=== PATIENT | male | born 1980 | race Caucasian/White ===

== ENCOUNTER 2017-05-08 17:15 | Emergency (ER) | payer SELFPAY ==
[~2017-05-08] VITALS: Wt 102.1 kg
[~2017-05-08 17:15] MED LIST: ULTRAM50 MG PO; Zofran4 MG PO
[2017-05-08] MEDS ORDERED: SERTRALINE HYD100 MG PO (17:34)
[2017-05-08] MEDS ORDERED: D3-5050000 IU PO (17:35)
[2017-05-08] MEDS ORDERED: NEXIUM20 M1 PO (17:35)
[2017-05-08] MEDS ORDERED: ZANTAC 150150 MG PO (17:35)
[2017-05-08 18:15] LABS: BASO % 0.2 % (0.0-1.0); HEMOGLOBIN 15.8 g/dl (14.0-18.0); IG # 0.1 10*3/uL (0.0-0.1); LYMPH # 1.6 10*3/uL (1.3-4.4); LYMPH % 9.5 % (27.0-41.0); MEAN CELL VOLUME 81.3 fl (80.0-94.0); MEAN CORPUSCULAR HGB 29.2 pg (27.0-31.0); MEAN CORPUSCULAR HGB CONC 35.9 g/dl (33.0-37.0); MEAN PLATELET VOLUME 10.8 fl (9.6-12.3); MONO # 0.5 10*3/uL (0.1-1.0); MONO % 3.2 % (3.0-9.0); NEUT # 14.5 10*3/uL (2.3-7.9); NEUT % 86.4 % (47.0-73.0); PLATELET COUNT AUTOMATED 290 10*3/uL (130-400); RED BLOOD COUNT 5.41 10*6/uL (4.50-5.90); RED CELL DISTRI WIDTH 12.6 % (0-14.5); WHITE BLOOD COUNT 16.8 10*3/uL (4.8-10.8)
[2017-05-08 18:16] LABS: BILIRUBIN NEGATIVE (NEGATIVE); BLOOD NEGATIVE (NEGATIVE); CLARITY CLEAR (CLEAR); COLOR YELLOW (YELLOW); GLUCOSE NEGATIVE (NEGATIVE); KETONE 2+ (NEGATIVE); LEUKO ESTERASE NEGATIVE (NEGATIVE); NITRITE NEGATIVE (NEGATIVE); PH >= 9.0 (5.0-9.0); PROTEIN 1+ (NEGATIVE); UROBILINOGEN 0.2 E.U./dl (0.2-1.0)
[2017-05-08 18:27] LABS: BACTERIA 2+; EPITHELIAL CELLS 0-2; URINE REFLEX COMMENT YES (NO); WBC 0-2 wbc/hpf (0-5)
[2017-05-08 18:31] LABS: ALBUMIN 4.4 gm/dl (3.1-4.5); ALKALINE PHOSPHATASE 94 U/L (45-117); BILIRUBIN, TOTAL 0.7 mg/dl (0.2-1.0); BUN 13 mg/dl (7-24); CARBON DIOXIDE 19 mmol/L (21-32); CHLORIDE 106 mmol/L (98-107); EST GLOM FILT AFRICAN AMERICAN > 60 ml/min; GLUCOSE 124 mg/dL (65-99); POTASSIUM 3.4 mmol/L (3.5-5.1); SGOT/AST 22 IU/L (3-35); SGPT/ALT 44 U/L (12-78); SODIUM 142 mmol/L (136-145); TOTAL PROTEIN 8.2 gm/dL (6.4-8.2)
[2017-05-08 18:34] LABS: TROPONIN I < 0.015 ng/ml (<0.045)
[2017-05-08 20:10] LABS: LA>2 REFLEX 2 HR DRAW NOW
[2017-05-09] MEDS ORDERED: MELATONIN3 MG PO (23:09)
[2017-05-09] MEDS ORDERED: UNISOM50 MG PO (23:09)
== END 2017-05-08 19:35 | disposition home or self-care (01) ==
LOC: ED 17:15
PROVIDERS: Registered Nurse
DX: E87.2 Acidosis (principal); R10.9 Unspecified abdominal pain; K21.0 Gastro-esophageal reflux disease with esophagitis; D72.829 Elevated white blood cell count, unspecified; F12.10 Cannabis abuse, uncomplicated; F17.200 Nicotine dependence, unspecified, uncomplicated; Z88.8 Allergy status to other drugs, medicaments and biological substances

== ENCOUNTER 2017-05-09 20:14 | Inpatient (IN) | payer SELFPAY ==
[~2017-05-09] VITALS: Ht 172.7 cm; Wt 104.1 kg
[~2017-05-09 20:14] MED LIST changes: +D3-5050000 IU PO; +NEXIUM20 M1 PO; +SERTRALINE HYD100 MG PO; +ZANTAC 150150 MG PO
[2017-05-09 20:40] VITALS: BP 162/100
[2017-05-09 21:07] LABS: BASO # 0.1 10*3/uL (0.0-0.1); BASO % 0.4 % (0.0-1.0); EOS # 0.1 10*3/uL (0.0-0.4); EOS % 0.8 % (1.0-4.0); HEMATOCRIT 43.9 % (42.0-52.0); HEMOGLOBIN 15.4 g/dl (14.0-18.0); IG # 0.1 10*3/uL (0.0-0.1); LYMPH # 2.4 10*3/uL (1.3-4.4); LYMPH % 19.6 % (27.0-41.0); MEAN CELL VOLUME 82.4 fl (80.0-94.0); MEAN CORPUSCULAR HGB 28.9 pg (27.0-31.0); MEAN CORPUSCULAR HGB CONC 35.1 g/dl (33.0-37.0); MEAN PLATELET VOLUME 10.7 fl (9.6-12.3); MONO # 0.9 10*3/uL (0.1-1.0); MONO % 7.7 % (3.0-9.0); NEUT # 8.5 10*3/uL (2.3-7.9); NEUT % 70.8 % (47.0-73.0); PLATELET COUNT AUTOMATED 265 10*3/uL (130-400); RED BLOOD COUNT 5.33 10*6/uL (4.50-5.90); RED CELL DISTRI WIDTH 12.7 % (0-14.5)
[2017-05-09 21:23] LABS: ALBUMIN 4.1 gm/dl (3.1-4.5); ALKALINE PHOSPHATASE 87 U/L (45-117); BUN 17 mg/dl (7-24); C-REACTIVE PROTEIN 1.19 MG/DL (0-0.3); CARBON DIOXIDE 18 mmol/L (21-32); CHLORIDE 107 mmol/L (98-107); EST GLOM FILT AFRICAN AMERICAN > 60 ml/min; GLUCOSE 103 mg/dL (65-99); POTASSIUM 3.4 mmol/L (3.5-5.1); SGOT/AST 34 IU/L (3-35); SGPT/ALT 47 U/L (12-78); SODIUM 141 mmol/L (136-145); TOTAL PROTEIN 7.6 gm/dL (6.4-8.2)
[2017-05-09 22:30] VITALS: BP 152/93
[2017-05-09 23:05] LABS: LA>2 REFLEX 2 HR DRAW NOW
[2017-05-09] MEDS ORDERED: UNISOM50 MG PO (23:09)
[2017-05-09] MEDS ORDERED: MELATONIN3 MG PO (23:09)
[2017-05-09 23:27] LABS: LA>2 RFLX FOLLOW UP AT 2 HRS 2.3 mmol/L (0.4-2.0)
[2017-05-10] VITALS (9 sets, daily range): BP systolic 85–156; BP diastolic 45–104
[2017-05-10 00:33] LABS: BILIRUBIN NEGATIVE (NEGATIVE); BLOOD NEGATIVE (NEGATIVE); CLARITY CLEAR (CLEAR); COLOR YELLOW (YELLOW); GLUCOSE NEGATIVE (NEGATIVE); KETONE 2+ (NEGATIVE); LEUKO ESTERASE NEGATIVE (NEGATIVE); NITRITE NEGATIVE (NEGATIVE); PH 6.5 (5.0-9.0); PROTEIN NEGATIVE (NEGATIVE); SPECIFIC GRAVITY 1.015 (1.005-1.030)
[2017-05-10 00:40] LABS: URINE REFLEX COMMENT NO (NO); WBC 0-2 wbc/hpf (0-5)
[2017-05-10 01:21] LABS: LA>2 REFLEX 4 HR DRAW NOW
[2017-05-10 06:35] LABS: BASO % 0.2 % (0.0-1.0); EOS % 0.3 % (1.0-4.0); HEMATOCRIT 43.8 % (42.0-52.0); HEMOGLOBIN 14.9 g/dl (14.0-18.0); IG # 0.1 10*3/uL (0.0-0.1); LYMPH # 2.7 10*3/uL (1.3-4.4); LYMPH % 21.6 % (27.0-41.0); MEAN CELL VOLUME 84.6 fl (80.0-94.0); MEAN CORPUSCULAR HGB 28.8 pg (27.0-31.0); MONO % 7.9 % (3.0-9.0); NEUT # 8.7 10*3/uL (2.3-7.9); NEUT % 69.4 % (47.0-73.0); PLATELET COUNT AUTOMATED 263 10*3/uL (130-400); RED BLOOD COUNT 5.18 10*6/uL (4.50-5.90); RED CELL DISTRI WIDTH 12.7 % (0-14.5); WHITE BLOOD COUNT 12.5 10*3/uL (4.8-10.8)
[2017-05-10 07:04] LABS: ALBUMIN 3.6 gm/dl (3.1-4.5); ALKALINE PHOSPHATASE 79 U/L (45-117); BILIRUBIN, TOTAL 0.9 mg/dl (0.2-1.0); BUN 13 mg/dl (7-24); CARBON DIOXIDE 26 mmol/L (21-32); CHLORIDE 106 mmol/L (98-107); CHOLESTEROL 261 mg/dL (<200); EST GLOM FILT AFRICAN AMERICAN > 60 ml/min; FREE T4 1.06 ng/dl (0.76-1.46); GLUCOSE 90 mg/dL (65-99); HDL CHOLESTEROL 37 mg/dl (40-60); LDL CHOLESTEROL 179 mg/dL (9-159); MAGNESIUM 2.8 mg/dL (1.5-2.1); PHOSPHOROUS 3.6 mg/dL (2.5-4.9); POTASSIUM 3.8 mmol/L (3.5-5.1); PROTHROMBIN TIME 10.9 SECONDS (9.0-12.4); SGOT/AST 28 IU/L (3-35); SGPT/ALT 41 U/L (12-78); SODIUM 141 mmol/L (136-145); TRIGLYCERIDES 225 mg/dl (<150); VLDL CHOLESTEROL 45 mg/dL (6-40)
[2017-05-10 07:29] LABS: HEMOGLOBIN A1c 5.7 % (4.8-5.6)
[2017-05-10 07:41] LABS: FOLIC ACID 15.61 ng/mL (>5.38); VITAMIN D, 25-HYDROXY 30.8 ng/mL (30-100)
[2017-05-11] VITALS: BP 127/70
[2017-05-11 08:00] VITALS: BP 147/67
[2017-05-11 12:00] VITALS: BP 149/90
[2017-05-11 16:00] VITALS: BP 143/84
[2017-05-11 20:00] VITALS: BP 124/64
[2017-05-12] VITALS: BP 140/84
[2017-05-12 06:11] LABS: BASO % 0.5 % (0.0-1.0); EOS # 0.1 10*3/uL (0.0-0.4); EOS % 1.6 % (1.0-4.0); HEMATOCRIT 43.5 % (42.0-52.0); HEMOGLOBIN 14.8 g/dl (14.0-18.0); IG # 0.1 10*3/uL (0.0-0.1); LYMPH # 2.1 10*3/uL (1.3-4.4); LYMPH % 23.8 % (27.0-41.0); MEAN CORPUSCULAR HGB 28.6 pg (27.0-31.0); MEAN PLATELET VOLUME 11.1 fl (9.6-12.3); MONO # 0.6 10*3/uL (0.1-1.0); MONO % 7.3 % (3.0-9.0); NEUT # 5.7 10*3/uL (2.3-7.9); NEUT % 66.2 % (47.0-73.0); PLATELET COUNT AUTOMATED 244 10*3/uL (130-400); RED BLOOD COUNT 5.18 10*6/uL (4.50-5.90); RED CELL DISTRI WIDTH 12.4 % (0-14.5); WHITE BLOOD COUNT 8.7 10*3/uL (4.8-10.8)
[2017-05-12 06:20] LABS: BUN 9 mg/dl (7-24); CARBON DIOXIDE 25 mmol/L (21-32); CHLORIDE 105 mmol/L (98-107); EST GLOM FILT AFRICAN AMERICAN > 60 ml/min; GLUCOSE 87 mg/dL (65-99); POTASSIUM 3.7 mmol/L (3.5-5.1); SODIUM 140 mmol/L (136-145)
[2017-05-12 08:00] VITALS: BP 155/97
[2017-05-12 12:00] VITALS: BP 156/87
[2017-05-12] MEDS ORDERED: ZOFRAN ODT4 MG SL (15:36)
[2017-05-12] MEDS ORDERED: Carafate1 GM PO (15:40)
== END 2017-05-12 15:59 | disposition home or self-care (01) | DRG 392 ==
LOC: ED 20:14 → EDHOLD 21:17 → 5E 21:17
PROVIDERS: Emergency Medicine Emergency Medical Services; Internal Medicine
PROC: 0DB68ZX Excision of Stomach, Via Natural or Artificial Opening Endoscopic, Diagnostic (ICD-10-PCS; principal; 2017-05-10)
DX: R11.2 Nausea with vomiting, unspecified (principal); E87.2 Acidosis; R10.13 Epigastric pain; R03.0 Elevated blood-pressure reading, without diagnosis of hypertension; D72.825 Bandemia; E87.6 Hypokalemia; K29.70 Gastritis, unspecified, without bleeding; K21.9 Gastro-esophageal reflux disease without esophagitis; K27.9 Peptic ulcer, site unspecified, unspecified as acute or chronic, without hemorrhage or perforation; F32.9 Major depressive disorder, single episode, unspecified; E55.9 Vitamin D deficiency, unspecified; E66.9 Obesity, unspecified; R06.82 Tachypnea, not elsewhere classified; E83.41 Hypermagnesemia; E78.5 Hyperlipidemia, unspecified; F10.10 Alcohol abuse, uncomplicated; Y90.9 Presence of alcohol in blood, level not specified; F15.90 Other stimulant use, unspecified, uncomplicated; K29.80 Duodenitis without bleeding; K44.9 Diaphragmatic hernia without obstruction or gangrene; Z68.34 Body mass index [BMI] 34.0-34.9, adult; Z72.0 Tobacco use; Z71.6 Tobacco abuse counseling; Z88.8 Allergy status to other drugs, medicaments and biological substances; Z79.899 Other long term (current) drug therapy